=== PATIENT | female | born 1935 | race Caucasian/White ===

== ENCOUNTER 2017-11-05 12:48 | Emergency (ER) | payer MEDICARE, BC, OTHER ==
[~2017-11-05] VITALS: Ht 157.5 cm; Wt 59.0 kg
[2017-11-05 13:35] LABS: Source, Urine Clean Catch
[2017-11-05 13:43] LABS: Appearance, Urine Hazy (Clear); Bilirubin, Urine Neg (Neg); Blood, Urine 3+ (Neg); Color, Urine Yellow (P-Yellow); Glucose Qualitative, Urine Neg (Neg); Ketones, Urine Neg (Neg); Leukocyte Esterase, Urine 3+ (Neg); Nitrite, Urine Neg (Neg); Protein, Urine Neg (Neg); Specific Gravity, Urine 1.015 (1.003-1.022); Urobilinogen, Urine NORM (Normal)
[2017-11-05 13:54] LABS: Bacteria Mod /hpf; Squamous Epithelial Cells Many /hpf (Few); White Blood Cells, Urine 25-50 /hpf (0-5)
[2017-11-05] MEDS ORDERED: Macrobid 100 M100 MG PO (14:03)
== END 2017-11-05 14:20 | disposition home or self-care (01) ==
LOC: ER 12:48
PROVIDERS: Physician Assistant
DX: N39.0 Urinary tract infection, site not specified (principal); Z88.1 Allergy status to other antibiotic agents; Z79.899 Other long term (current) drug therapy
CPT/HCPCS: 81001; 87086; 99283

== ENCOUNTER 2018-01-09 09:46 | Day surgery (SDC) | payer MEDICARE, BC, OTHER ==
[~2018-01-09] VITALS: Ht 154.9 cm; Wt 61.2 kg
[~2018-01-09 09:46] MED LIST: Macrobid 100 M100 MG PO
[2018-01-09] MEDS ORDERED: ALPR.5 (10:16)
[2018-01-09] MEDS ORDERED: Effexor Xr37.5 MG (10:16)
[2018-01-09] MEDS ORDERED: HYDR1TAB94 PO (10:16)
== END 2018-01-09 11:25 | disposition home or self-care (01) ==
LOC: ORSCSDS 09:46
PROVIDERS: Anesthesiology
PROC: 3E0R33Z Introduction of Anti-inflammatory into Spinal Canal, Percutaneous Approach (ICD-10-PCS; principal; 2018-01-09 10:30)
DX: M51.16 Intervertebral disc disorders with radiculopathy, lumbar region (principal); Z86.711 Personal history of pulmonary embolism; F41.8 Other specified anxiety disorders; I10 Essential (primary) hypertension; Z79.899 Other long term (current) drug therapy
CPT/HCPCS: J1040

== ENCOUNTER 2018-03-05 16:24 | Emergency (ER) | payer MEDICARE, BC, OTHER ==
[~2018-03-05] VITALS: Ht 154.9 cm; Wt 61.7 kg
[~2018-03-05 16:24] MED LIST changes: +ALPR.5; +Effexor Xr37.5 MG; +HYDR1TAB94 PO
[2018-03-05] MEDS ORDERED: HYDR1TAB94 PO (17:51)
== END 2018-03-05 18:20 | disposition home or self-care (01) ==
LOC: ER 16:24
DX: S52.501A Unspecified fracture of the lower end of right radius, initial encounter for closed fracture (principal); S52.601A Unspecified fracture of lower end of right ulna, initial encounter for closed fracture; W18.30XA Fall on same level, unspecified, initial encounter; Z88.1 Allergy status to other antibiotic agents; Z79.899 Other long term (current) drug therapy
CPT/HCPCS: 29125; 73110; 99283-25

== ENCOUNTER 2018-10-31 12:52 | Emergency (ER) | payer MEDICARE, BC, OTHER ==
[~2018-10-31] VITALS: Ht 160 cm; Wt 59.9 kg
[~2018-10-31 12:52] MED LIST changes: -ALPR.5; +ALPR.5 PO; +Effexor Xr150 MG PO; -Effexor Xr37.5 MG
[2018-10-31] MEDS ORDERED: METPHE5 PO (14:40)
[2018-10-31] MEDS ORDERED: Norco 10-325 T1 EACH PO (14:40)
[2018-10-31 15:37] LABS: BASOPHILS ABSOLUTE AUTO 0.02 K/mm3 (0.00-0.23); BASOPHILS PERCENT AUTO 0 % (0-2); EOSINOPHILS ABSOLUTE AUTO 0.08 K/mm3 (0.00-0.68); EOSINOPHILS PERCENT AUTO 2 % (0-6); Hematocrit 36.4 % (33.0-51.0); Hemoglobin 11.3 g/dL (11.5-16.0); IMMATURE GRAN ABSOLUTE AUTO 0.01 K/mm3 (0.00-0.10); IMMATURE GRAN PERCENT AUTO 0 % (0-1); LYMPHOCYTES ABSOLUTE AUTO 0.92 K/mm3 (0.84-5.20); LYMPHOCYTES PERCENT AUTO 18 % (21-46); MONOCYTES ABSOLUTE AUTO 0.58 K/mm3 (0.16-1.47); MONOCYTES PERCENT AUTO 12 % (4-13); Mean Corpuscular HGB 33.9 pg (26.0-34.0); Mean Corpuscular Volume 109 fL (80-100); Mean Platelet Volume 11.2 fL (9.1-12.4); NEUTROPHILS ABSOLUTE AUTO 3.43 K/mm3 (1.96-9.15); NEUTROPHILS PERCENT AUTO 68 % (41-73); Platelet Count 112 K/mm3 (150-400); RDW Coefficient Variation 12.2 % (11.7-14.2); RDW Standard Deviation 49.2 fL (35.1-46.3); Red Blood Cell Count 3.33 M/mm3 (3.80-5.20); White Blood Cell Count 5.04 K/mm3 (4.00-11.30)
[2018-10-31 16:02] LABS: Anion Gap 5 mmol/L (6-16); Blood Urea Nitrogen 18 mg/dL (8-24); Bun/Creatinine Ratio 28.5 (12.0-20.0); CO2, Blood 29 mmol/L (21-32); Calcium, Blood 8.5 mg/dL (8.5-10.1); Chloride, Blood 105 mmol/L (98-108); Creatinine, Blood 0.63 mg/dL (0.40-1.00); Glomerular Filtration Rate >60 (60-); Glucose, Blood 102 mg/dL (70-99); Potassium, Blood 3.8 mmol/L (3.5-5.5); Sodium, Blood 139 mmol/L (136-145)
[2018-10-31] MEDS ORDERED: Percocet 5-3251 EACH PO (16:40)
== END 2018-10-31 17:30 | disposition home or self-care (01) ==
LOC: ER 12:52
PROVIDERS: Emergency Medicine
DX: S32.592A Other specified fracture of left pubis, initial encounter for closed fracture (principal); Z79.899 Other long term (current) drug therapy; E88.1 Lipodystrophy, not elsewhere classified; Z96.642 Presence of left artificial hip joint; Z98.1 Arthrodesis status; W18.30XA Fall on same level, unspecified, initial encounter
CPT/HCPCS: 72192; 73502; 80048; 85025

== ENCOUNTER → 2019-04-19 | Outpatient (CLI) | payer MEDICARE, BC, OTHER ==
[~2019-04-19] MED LIST changes: +METPHE5 PO; +Norco 10-325 T1 EACH PO; +Percocet 5-3251 EACH PO
[2019-04-26 13:07] LABS: M-SPIKE, % Not Observed % (Not Observed); PROTEIN,TOTAL,URINE 12.8 mg/dL (Not Estab.)
== END | disposition home or self-care (01) ==
LOC: OLS 06:00 → LAB SHORT 06:00 → LAB FUT 04-13 17:50 → EDSTATUS 04-13 17:50
PROVIDERS: Internal Medicine
DX: Z00.01 Encounter for general adult medical examination with abnormal findings (principal); R79.9 Abnormal finding of blood chemistry, unspecified
CPT/HCPCS: 81050; 84166; 86335

== ENCOUNTER 2020-02-28 11:02 | Observation (INO) | payer MEDICARE, BC, OTHER ==
[~2020-02-28] VITALS: Ht 157.5 cm; Wt 59.0 kg
[2020-02-28 11:51] LABS: BASOPHILS ABSOLUTE AUTO 0.01 K/mm3 (0.00-0.23); BASOPHILS PERCENT AUTO 0 % (0-2); EOSINOPHILS ABSOLUTE AUTO 0.03 K/mm3 (0.00-0.68); EOSINOPHILS PERCENT AUTO 1 % (0-6); Hematocrit 40.4 % (33.0-51.0); Hemoglobin 12.6 g/dL (11.5-16.0); IMMATURE GRAN PERCENT AUTO 0 % (0-1); LYMPHOCYTES ABSOLUTE AUTO 0.98 K/mm3 (0.84-5.20); LYMPHOCYTES PERCENT AUTO 22 % (21-46); MONOCYTES ABSOLUTE AUTO 0.46 K/mm3 (0.16-1.47); MONOCYTES PERCENT AUTO 11 % (4-13); Mean Corpuscular HGB 33.2 pg (26.0-34.0); Mean Corpuscular HGB Conc 31.2 g/dL (31.5-36.5); Mean Corpuscular Volume 106 fL (80-100); Mean Platelet Volume 11.2 fL (9.1-12.4); NEUTROPHILS PERCENT AUTO 66 % (41-73); Platelet Count 160 K/mm3 (150-400); RDW Coefficient Variation 12.3 % (11.7-14.2); RDW Standard Deviation 48.1 fL (35.1-46.3); White Blood Cell Count 4.38 K/mm3 (4.00-11.30)
[2020-02-28 12:11] LABS: Alanine Aminotransfer (ALT/SGP 19 U/L (12-78); Albumin, Blood 3.8 g/dL (3.4-5.0); Albumin/Globulin Ratio 1.2 (0.8-1.8); Alk Phos 81 U/L (50-136); Anion Gap 4 mmol/L (6-16); Aspartate Aminotrans (AST/SGOT 23 U/L (12-37); Bilirubin, Total 0.3 mg/dL (0.1-1.0); Blood Urea Nitrogen 17 mg/dL (8-24); Bun/Creatinine Ratio 25.7 (12.0-20.0); CO2, Blood 30 mmol/L (21-32); Calcium, Blood 8.8 mg/dL (8.5-10.1); Chloride, Blood 108 mmol/L (98-108); Creatinine, Blood 0.66 mg/dL (0.40-1.00); Globulin, Blood 3.1 g/dL (2.2-4.0); Glomerular Filtration Rate >60 (60-); Glucose, Blood 104 mg/dL (70-99); Potassium, Blood 3.9 mmol/L (3.5-5.5); Sodium, Blood 142 mmol/L (136-145); Total Protein, Blood 6.9 g/dL (6.4-8.2); Troponin I <0.015 ng/mL (0.000-0.040)
[2020-02-28] MEDS ORDERED: VENLAFAXINE HCL75 M1 PO (14:03)
[2020-02-28] MEDS ORDERED: ALPR.5 PO ×2 (14:03→14:04)
[2020-02-28] MEDS ORDERED: ALPRAZOLAM0.5 M1 PO (14:03)
[2020-02-28] MEDS ORDERED: ENDOCET 7.5-321 EACH PO (14:04)
--- NOTE | 2020-02-28 17:00 | NUR ---
PT TO 301 APPROX 16:00. 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 PT CONT TO DENY CP/SOB, N/V, N/T. PT SPEAKS CLEARLY. PT REPORTS ANXIOUS AT TIMES. PT ASSISTED WITH CALLING DAUGHTER TO HELP FACILITATE THE PT'S DOGS BEING TAKEN CARE OF. PT BEEN ORIENTED TO ROOM, CALL LIGHT, BED. PT HAS BELONGINGS IN ROOM INCLUDING CLOTHES, PURSE, AND PINK/PURPLISH CANE. PT REPORTS GIVING LIST OF MEDICATION TO OTHER HEALTHCARE WORKERS EARLIER. PT A/O BUT IS FORGETFUL. ALARM PLACED. PAS PLACED. PT ASSISTED WITH HER PHONE.
--- NOTE | 2020-02-28 18:51 | NUR ---
PT'S GRANDSON HERE, GAVE PT HER PHONE BOOK AND BROWN BAG. PT'S GRANDSON TAKING HOME MEDICATIONS HOME. HOME MEDICATIONS VERIFIED.
--- NOTE | 2020-02-29 03:34 | NUR ---
SUMMARY: PT A/O TO SELF, PLACE AND FAMILY BUT IS ADMITTEDLY FORGETFULL W/SHORT TERM MEMORY ISSUES. SHE REPORTS CANE USE AT BASELINE FOR UNSTEADY GAIT SO BED ALARM ARMED FOR FALL RISK AND POSS IMPULISIVITY. SHE CALLED APPROPRIATELY MOST OF NOCTE W/SBA PROVIDED TO TOILET AND ATTENDS CHANGED PRN. PT DENIED CP, SOB, NAUSEA AND ALL OTHER S/S CARDIAC DISTRESS. SHE REMAINS NSR W/OCC. PAC'S PER TELEMETRY. XANAX PROVIDED AT HS PER PT REQUEST FOR "ANXIETY ISSUES" AND SHE SLEPT MOST OF NOCTE. SHE'S PLEASANT AND COOPERATIVE W/CARE W/O COMPLAINTS. NO ACUTE CHANGES, VSS/AFEBRILE. WCTM AND REPORT TO DAY RN.
[2020-02-29] MEDS ORDERED: METO25ER PO (11:01)
--- NOTE | 2020-02-29 15:48 | NUR ---
DISCHARGE INSTRUCTIONS COMPLETED AND DISCUSSED WITH PT AD HER GRANDSON, FAIZA. SPOKE TO FAIZA ABOUT WHETHER PT TAKES HER MEDICATIONS ON HER OWN AT HOME AND HE REPORTED YES, ENCOURAGED GRANDSON TO SPEAK WITH PTS DAUGHTER AD REEVALUATE WHETHER MEDICATIONS SHOULD BE GIVEN BY A CAREGIVER INSTEAD. [facility]. ENCOURAGED PT TO TAKE HER BLOOD PRESSURE PRIOR TO TAKING HER NEW MEDICATION OF METOPROLOL. TO [facility] VIA W/C.
== END 2020-02-29 14:38 | disposition home or self-care (01) ==
LOC: ER 11:02 → MEDS 11:03 → ENPENDDIS 02-29 10:43 → MEDS 02-29 14:38
PROVIDERS: Emergency Medicine; ADMIT Internal Medicine
DX: R07.9 Chest pain, unspecified (principal); F41.9 Anxiety disorder, unspecified; F03.90 Unspecified dementia, unspecified severity, without behavioral disturbance, psychotic disturbance, mood disturbance, and anxiety; I10 Essential (primary) hypertension; G89.29 Other chronic pain; M54.9 Dorsalgia, unspecified; F11.20 Opioid dependence, uncomplicated; F32.9 Major depressive disorder, single episode, unspecified; Z88.1 Allergy status to other antibiotic agents
CPT/HCPCS: 36415; 71046; 80053; 84484; 85025; 93005; 93010; 96372; 99285-25; A9270-GY; G0378; J1650

== ENCOUNTER → 2021-02-28 | Outpatient (CLI) | payer MEDICARE, BC, OTHER ==
[~2021-02-28] MED LIST changes: +ALPRAZOLAM0.5 M1 PO; +ENDOCET 7.5-321 EACH PO; +METO25ER PO; +VENLAFAXINE HCL75 M1 PO
== END | disposition home or self-care (01) ==
LOC: LAB SHORT 18:57 → LAB 18:57
DX: R82.79 Other abnormal findings on microbiological examination of urine (principal)
CPT/HCPCS: 87086

== ENCOUNTER 2021-11-02 13:49 | Emergency (ER) | payer MEDICARE, BC, OTHER ==
[~2021-11-02] VITALS: Ht 157.5 cm; Wt 56.7 kg
[2021-11-02 14:31] LABS: BASOPHILS ABSOLUTE AUTO 0.01 K/mm3 (0.00-0.23); BASOPHILS PERCENT AUTO 0 % (0-2); EOSINOPHILS ABSOLUTE AUTO 0.01 K/mm3 (0.00-0.68); EOSINOPHILS PERCENT AUTO 0 % (0-6); Hematocrit 37.4 % (33.0-51.0); Hemoglobin 12.1 g/dL (11.5-16.0); IMMATURE GRAN ABSOLUTE AUTO 0.05 K/mm3 (0.00-0.10); IMMATURE GRAN PERCENT AUTO 1 % (0-1); LYMPHOCYTES ABSOLUTE AUTO 0.74 K/mm3 (0.84-5.20); LYMPHOCYTES PERCENT AUTO 9 % (21-46); MONOCYTES ABSOLUTE AUTO 1.05 K/mm3 (0.16-1.47); MONOCYTES PERCENT AUTO 13 % (4-13); Mean Corpuscular HGB 32.6 pg (26.0-34.0); Mean Corpuscular HGB Conc 32.4 g/dL (31.5-36.5); Mean Corpuscular Volume 101 fL (80-100); Mean Platelet Volume 10.9 fL (9.1-12.4); NEUTROPHILS ABSOLUTE AUTO 6.29 K/mm3 (1.96-9.15); NEUTROPHILS PERCENT AUTO 77 % (41-73); Platelet Count 236 K/mm3 (150-400); RDW Coefficient Variation 11.9 % (11.7-14.2); RDW Standard Deviation 44.2 fL (35.1-46.3); Red Blood Cell Count 3.71 M/mm3 (3.80-5.20); White Blood Cell Count 8.15 K/mm3 (4.00-11.30)
[2021-11-02 14:57] LABS: Alanine Aminotransfer (ALT/SGP 18 U/L (12-78); Albumin/Globulin Ratio 0.8 (0.8-1.8); Alk Phos 73 U/L (50-136); Anion Gap 6 mmol/L (6-16); Aspartate Aminotrans (AST/SGOT 14 U/L (12-37); Bilirubin, Total 0.5 mg/dL (0.1-1.0); Blood Urea Nitrogen 16 mg/dL (8-24); Bun/Creatinine Ratio 29.7 (12.0-20.0); CO2, Blood 28 mmol/L (21-32); Chloride, Blood 105 mmol/L (98-108); Creatinine, Blood 0.54 mg/dL (0.40-1.00); Glomerular Filtration Rate >60 (60-); Glucose, Blood 168 mg/dL (70-99); Potassium, Blood 3.8 mmol/L (3.5-5.5); Sodium, Blood 139 mmol/L (136-145)
== END 2021-11-02 20:20 | disposition home or self-care (01) ==
LOC: ER 13:49
PROVIDERS: Physician Assistant
DX: R19.7 Diarrhea, unspecified (principal); E73.9 Lactose intolerance, unspecified; Z88.1 Allergy status to other antibiotic agents; Z79.899 Other long term (current) drug therapy
CPT/HCPCS: 36415; 71046; 80053; 83690; 83880; 84484; 85025; 93005; 93010; 96374; 99284-25; J2405; J7030

== ENCOUNTER 2022-11-06 16:47 | Emergency (ER) | payer MEDICARE, BC, OTHER ==
[~2022-11-06] VITALS: Ht 167.6 cm; Wt 54.4 kg
[2022-11-06 21:18] LABS: Source, Urine Straight Cath
[2022-11-06 21:21] LABS: Appearance, Urine Cloudy (Clear); Bilirubin, Urine Neg (Neg); Blood, Urine 2+ (Neg); Color, Urine Yellow (P-Yellow); Glucose Qualitative, Urine Neg (Neg); Ketones, Urine 2+ (Neg); Leukocyte Esterase, Urine 3+ (Neg); Nitrite, Urine Pos (Neg); Protein, Urine 2+ (Neg); Urobilinogen, Urine NORM (Normal)
[2022-11-06 21:30] VITALS: BP 131/75
[2022-11-06 21:31] LABS: Bacteria Many /hpf; Squamous Epithelial Cells Mod /hpf (Few); White Blood Cells, Urine TNTC /hpf (0-5)
[2022-11-06 21:45] LABS: BASOPHILS ABSOLUTE AUTO 0.01 K/mm3 (0.00-0.23); BASOPHILS PERCENT AUTO 0 % (0-2); EOSINOPHILS ABSOLUTE AUTO 0.01 K/mm3 (0.00-0.68); EOSINOPHILS PERCENT AUTO 0 % (0-6); Hematocrit 33.1 % (33.0-51.0); Hemoglobin 10.7 g/dL (11.5-16.0); IMMATURE GRAN ABSOLUTE AUTO 0.02 K/mm3 (0.00-0.10); IMMATURE GRAN PERCENT AUTO 0 % (0-1); LYMPHOCYTES ABSOLUTE AUTO 0.22 K/mm3 (0.84-5.20); LYMPHOCYTES PERCENT AUTO 4 % (21-46); MONOCYTES ABSOLUTE AUTO 0.45 K/mm3 (0.16-1.47); MONOCYTES PERCENT AUTO 9 % (4-13); Mean Corpuscular HGB 33.9 pg (26.0-34.0); Mean Corpuscular HGB Conc 32.3 g/dL (31.5-36.5); Mean Corpuscular Volume 105 fL (80-100); Mean Platelet Volume 10.2 fL (9.1-12.4); NEUTROPHILS ABSOLUTE AUTO 4.35 K/mm3 (1.96-9.15); NEUTROPHILS PERCENT AUTO 86 % (41-73); Platelet Count 119 K/mm3 (150-400); RDW Coefficient Variation 12.3 % (11.7-14.2); RDW Standard Deviation 47.2 fL (35.1-46.3); Red Blood Cell Count 3.16 M/mm3 (3.80-5.20); White Blood Cell Count 5.06 K/mm3 (4.00-11.30)
[2022-11-06 21:55] LABS: Bun/Creatinine Ratio 31.5 (12.0-20.0); Calcium, Blood 7.8 mg/dL (8.5-10.1); Creatinine, Blood 0.6 mg/dL (0.40-1.00); Potassium, Blood 3.8 mmol/L (3.5-5.5)
[2022-11-06] MEDS ORDERED: CEFD300 PO (21:56)
== END 2022-11-06 22:42 | disposition home or self-care (01) ==
LOC: ER 16:47
PROVIDERS: Emergency Medicine
DX: N39.0 Urinary tract infection, site not specified (principal); E86.0 Dehydration; R53.1 Weakness; E83.51 Hypocalcemia; W18.30XA Fall on same level, unspecified, initial encounter; Z88.1 Allergy status to other antibiotic agents; Z79.899 Other long term (current) drug therapy
CPT/HCPCS: 51701; 70450; 72170; 73080; 80048; 81001; 85025; 96361; 96365; 99284-25; J0696; J7030

== ENCOUNTER 2022-11-27 10:03 | Emergency (ER) | payer MEDICARE, BC, OTHER ==
[~2022-11-27] VITALS: Ht 157.5 cm; Wt 72.6 kg
[~2022-11-27 10:03] MED LIST changes: +CEFD300 PO
[2022-11-27 10:11] VITALS: BP 157/102
== END 2022-11-27 13:01 | disposition home or self-care (01) ==
LOC: ER 10:03
DX: S09.90XA Unspecified injury of head, initial encounter (principal); Z88.1 Allergy status to other antibiotic agents; W18.30XA Fall on same level, unspecified, initial encounter
CPT/HCPCS: 70450; 99283-25

== ENCOUNTER 2023-02-20 16:17 | Emergency (ER) | payer MEDICARE, BC, OTHER ==
[~2023-02-20] VITALS: Ht 165.1 cm; Wt 59.0 kg
[~2023-02-20 16:17] MED LIST changes: +ACET500 PO; +LOPE2C PO; +NALOXONE H0.4 MG/1 M IM; +NITR100CA PO; +OXYACE7.5T PO; +VENL150ER PO
[2023-02-20 17:07] LABS: BASOPHILS PERCENT AUTO 0 % (0-2); EOSINOPHILS ABSOLUTE AUTO 0.04 K/mm3 (0.00-0.68); EOSINOPHILS PERCENT AUTO 1 % (0-6); Hematocrit 34.8 % (33.0-51.0); Hemoglobin 11.4 g/dL (11.5-16.0); IMMATURE GRAN ABSOLUTE AUTO 0.01 K/mm3 (0.00-0.10); IMMATURE GRAN PERCENT AUTO 0 % (0-1); LYMPHOCYTES ABSOLUTE AUTO 0.22 K/mm3 (0.84-5.20); LYMPHOCYTES PERCENT AUTO 5 % (21-46); MONOCYTES ABSOLUTE AUTO 0.48 K/mm3 (0.16-1.47); MONOCYTES PERCENT AUTO 11 % (4-13); Mean Corpuscular HGB 34.1 pg (26.0-34.0); Mean Corpuscular HGB Conc 32.8 g/dL (31.5-36.5); Mean Corpuscular Volume 104 fL (80-100); Mean Platelet Volume 11.1 fL (9.1-12.4); NEUTROPHILS ABSOLUTE AUTO 3.79 K/mm3 (1.96-9.15); NEUTROPHILS PERCENT AUTO 84 % (41-73); Platelet Count 117 K/mm3 (150-400); RDW Coefficient Variation 12.6 % (11.7-14.2); RDW Standard Deviation 48.4 fL (35.1-46.3); Red Blood Cell Count 3.34 M/mm3 (3.80-5.20); White Blood Cell Count 4.54 K/mm3 (4.00-11.30)
[2023-02-20 17:36] LABS: Albumin, Blood 3.2 g/dL (3.4-5.0); Albumin/Globulin Ratio 1.2 (0.8-1.8); Bilirubin, Total 0.4 mg/dL (0.1-1.0); Bun/Creatinine Ratio 34.2 (12.0-20.0); Calcium, Blood 8.5 mg/dL (8.5-10.1); Creatinine, Blood 0.58 mg/dL (0.40-1.00); Globulin, Blood 2.7 g/dL (2.2-4.0); Potassium, Blood 4.3 mmol/L (3.5-5.5); Total Protein, Blood 5.9 g/dL (6.4-8.2)
[2023-02-20 19:18] LABS: Source, Urine Clean Catch
[2023-02-20 19:30] LABS: Appearance, Urine Clear (Clear); Bilirubin, Urine Neg (Neg); Blood, Urine Neg (Neg); Color, Urine Yellow (P-Yellow); Glucose Qualitative, Urine Neg (Neg); Ketones, Urine Neg (Neg); Leukocyte Esterase, Urine 1+ (Neg); Nitrite, Urine Neg (Neg); Protein, Urine 1+ (Neg); Specific Gravity, Urine 1.015 (1.003-1.022); Urobilinogen, Urine NORM (Normal)
[2023-02-20 19:43] LABS: Bacteria Many /hpf; Red Blood Cells, Urine 0-2 /hpf (0-2); Squamous Epithelial Cells Few /hpf (Few)
[2023-02-20 19:45] VITALS: BP 141/84
[2023-02-20] MEDS ORDERED: MUPIROCIN1 G1 TOP (20:23)
[2023-02-20] MEDS ORDERED: Neurontin 100100 MG PO (21:01)
== END 2023-02-20 21:24 | disposition home or self-care (01) ==
LOC: ER 16:17
PROVIDERS: Emergency Medicine
DX: S09.90XA Unspecified injury of head, initial encounter (principal); F03.90 Unspecified dementia, unspecified severity, without behavioral disturbance, psychotic disturbance, mood disturbance, and anxiety; Z23 Encounter for immunization; Z86.711 Personal history of pulmonary embolism; Z88.1 Allergy status to other antibiotic agents; W18.30XA Fall on same level, unspecified, initial encounter
CPT/HCPCS: 80053; 81001; 85025; 87086; 90471; 90714; 90715; 99285; A9270